=== PATIENT | male | born 1940 | race Caucasian/White ===

== ENCOUNTER 2018-10-13 14:20 | Inpatient (IN) ==
[2018-10-13 15:30] LABS: Basophils % 0.2 % (0.0-0.8); Eosinophils % 0.2 % (0.00-10.9); Hematocrit 36.9 VOL% (42.0-52.0); Hemoglobin 11.4 GM/DL (14.0-18.0); Immature Granulocytes % 0.4 %; Immature Granulocytes Absolute 0.05 #; Lymphocytes # 5.8 10*3/uL (1.4-4.0); Lymphocytes % 45.7 % (21.2-54.2); Mean Corpuscular HGB Conc 30.9 GM/DL (32-36); Mean Corpuscular Volume 85.6 FL (87-102); Mean Platelet Volume 12.7 FL (9.6-12.0); Neutrophils % 45.5 % (38.7-73.9); Platelet Count 90 T/CUMM (130-400); Red Blood Count 4.31 MC/CUMM (3.8-5.5); White Blood Count 12.8 T/CUMM (4-12)
[2018-10-13 15:56] LABS: PT Patient Result 21.1 SECS
[2018-10-13 15:59] LABS: Apearance,Urine CLEAR (Clear); Bilirubin,Urine Negative (Negative); Blood, Urine Large mg/dL (Negative); Glucose,Urine (UA) Negative (Negative); Hyaline Casts,Urine 5 /LPF (0-3); Ketones,Urine Negative (Negative); Mucus,Urine Occasional /LPF (Occasional); Nitrite,Urine Negative (Negative); Protein,Urine Negative; RBC,Urine 13 /HPF (0-4); Urine Color Straw (Yellow); Urine Urobilinogen < 2.0 EU/DL (0.2-1.0); WBC,Urine <1 /HPF (0-6)
[2018-10-13 16:08] LABS: Albumin 3.8 G/DL (3.4-5.0); Bilirubin,Total 0.6 MG/DL (0.2-1.0); Calcium 8.9 MG/DL (8.5-10.1); Osmolality,Calculated 304.7 MOS/KG (273-304)
[2018-10-13 16:46] LABS: Lymphocytes 45 % (20-55); Platelet Estimate Decreased; Segmented Neutrophils 53 % (50-85); Total Cells Counted 100
[2018-10-13] MEDS ORDERED: ONDANSETRON 4 MG/2 ML VIAL IV PRN (17:42)
[2018-10-13] MEDS: DOXAZOSIN 4 MG TABLET PO SCH (20:36)
[2018-10-13] MEDS: ROSUVASTATIN 20 MG TABLET PO SCH (20:36)
[2018-10-13] MEDS: FERROUS SULFATE 325 MG TABLET PO SCH (20:37)
[2018-10-13] MEDS: WARFARIN 3 MG TABLET PO SCH (20:37)
[2018-10-13] MEDS: SODIUM CHLORIDE 0.9% 1,000 ML IV SCH (20:41)
[2018-10-14] MEDS: SODIUM CHLORIDE 0.9% 1,000 ML IV SCH ×2 (05:43→18:30)
[2018-10-14 06:20] LABS: Basophils % 0.2 % (0.0-0.8); Eosinophils % 0.2 % (0.00-10.9); Hematocrit 33.1 VOL% (42.0-52.0); Hemoglobin 10.4 GM/DL (14.0-18.0); Immature Granulocytes % 0.2 %; Immature Granulocytes Absolute 0.02 #; Lymphocytes # 4.5 10*3/uL (1.4-4.0); Lymphocytes % 43.2 % (21.2-54.2); Mean Corpuscular HGB Conc 31.4 GM/DL (32-36); Mean Corpuscular Volume 84.4 FL (87-102); Monocytes % 8.7 % (1.7-12.7); Neutrophils % 47.5 % (38.7-73.9); Platelet Count 82 T/CUMM (130-400); Red Blood Count 3.92 MC/CUMM (3.8-5.5); Red Cell Distribution Width 16.9 % (9.3-17.3); White Blood Count 10.4 T/CUMM (4-12)
[2018-10-14 06:30] LABS: INR 2.2
[2018-10-14] MEDS: LEVOTHYROXINE 50 MCG TABLET PO SCH (06:35)
[2018-10-14 06:41] LABS: PT Patient Result 24.1 SECS
[2018-10-14 06:50] LABS: Anisocytosis 1+; Ovalocytes 1+; Platelet Estimate Decreased
[2018-10-14 06:58] LABS: Albumin 3.1 G/DL (3.4-5.0); Bilirubin,Total 0.6 MG/DL (0.2-1.0); Calcium 8.9 MG/DL (8.5-10.1); Osmolality,Calculated 302.7 MOS/KG (273-304); Thyroid Stimulating Hormone 2.33 uIU/ml (0.358-3.74); Total Protein 6.7 G/DL (6.4-8.3)
[2018-10-14] MEDS: PANTOPRAZOLE 40 MG TABLET PO SCH (08:34)
[2018-10-14] MEDS: FERROUS SULFATE 325 MG TABLET PO SCH ×2 (08:34→21:06)
[2018-10-14] MEDS: TAMSULOSIN 0.4 MG CAPSULE PO SCH (08:34)
[2018-10-14] MEDS: hydrALAZINE 20 MG/1 ML VIAL IV PRN (11:38)
[2018-10-14] MEDS: WARFARIN 3 MG TABLET PO SCH (21:05)
[2018-10-14] MEDS: DOXAZOSIN 4 MG TABLET PO SCH (21:05)
[2018-10-14] MEDS: ROSUVASTATIN 20 MG TABLET PO SCH (21:06)
[2018-10-15] MEDS: SODIUM CHLORIDE 0.9% 1,000 ML IV SCH ×2 (04:15→17:38)
[2018-10-15] MEDS: hydrALAZINE 20 MG/1 ML VIAL IV PRN ×2 (04:33→10:06)
[2018-10-15 06:08] LABS: Basophils % 0.2 % (0.0-0.8); Eosinophils % 0.3 % (0.00-10.9); Hematocrit 31.5 VOL% (42.0-52.0); Hemoglobin 9.8 GM/DL (14.0-18.0); Immature Granulocytes % 0.5 %; Immature Granulocytes Absolute 0.05 #; Lymphocytes # 4.3 10*3/uL (1.4-4.0); Lymphocytes % 39.2 % (21.2-54.2); Mean Corpuscular HGB Conc 31.1 GM/DL (32-36); Mean Corpuscular Volume 85.8 FL (87-102); Mean Platelet Volume 12.2 FL (9.6-12.0); Monocytes % 10.2 % (1.7-12.7); Neutrophils % 49.6 % (38.7-73.9); Platelet Count 69 T/CUMM (130-400); Red Blood Count 3.67 MC/CUMM (3.8-5.5); Red Cell Distribution Width 17.1 % (9.3-17.3)
[2018-10-15] MEDS: LEVOTHYROXINE 50 MCG TABLET PO SCH (06:33)
[2018-10-15 06:45] LABS: Albumin 2.9 G/DL (3.4-5.0); Bilirubin,Total 0.7 MG/DL (0.2-1.0); Calcium 8.6 MG/DL (8.5-10.1); Osmolality,Calculated 294.8 MOS/KG (273-304); Total Protein 6.2 G/DL (6.4-8.3)
[2018-10-15 06:46] LABS: Lymphocytes 31 % (20-55); Segmented Neutrophils 62 % (50-85); Total Cells Counted 100
[2018-10-15 06:47] LABS: Anisocytosis 1+; Microcytosis 2+; Ovalocytes Few
[2018-10-15 06:48] LABS: Platelet Estimate Decreased
[2018-10-15] MEDS: PANTOPRAZOLE 40 MG TABLET PO SCH (08:33)
[2018-10-15] MEDS: TAMSULOSIN 0.4 MG CAPSULE PO SCH (08:33)
[2018-10-15] MEDS: FERROUS SULFATE 325 MG TABLET PO SCH ×2 (08:33→22:20)
[2018-10-15] MEDS ORDERED: CARVEDILOL 3.125 MG TABLET PO ONE (10:06)
[2018-10-15] MEDS: DOXAZOSIN 4 MG TABLET PO SCH (22:20)
[2018-10-15] MEDS: WARFARIN 3 MG TABLET PO SCH (22:20)
[2018-10-15] MEDS: ROSUVASTATIN 20 MG TABLET PO SCH (22:21)
[2018-10-16] MEDS: SODIUM CHLORIDE 0.9% 1,000 ML IV SCH ×3 (03:18→15:29)
[2018-10-16 05:37] LABS: Basophils % 0.2 % (0.0-0.8); Eosinophils # 0.1 10*3/uL (0.0-0.87); Hematocrit 30.1 VOL% (42.0-52.0); Hemoglobin 9.2 GM/DL (14.0-18.0); Immature Granulocytes % 0.3 %; Immature Granulocytes Absolute 0.03 #; Lymphocytes # 4.7 10*3/uL (1.4-4.0); Lymphocytes % 47.9 % (21.2-54.2); Mean Corpuscular HGB Conc 30.6 GM/DL (32-36); Mean Platelet Volume 12.2 FL (9.6-12.0); Monocytes % 11.8 % (1.7-12.7); Neutrophils % 38.8 % (38.7-73.9); Platelet Count 73 T/CUMM (130-400); Red Blood Count 3.46 MC/CUMM (3.8-5.5); White Blood Count 9.9 T/CUMM (4-12)
[2018-10-16 05:55] LABS: Hypochromasia 1+; Microcytosis 1+; Ovalocytes Slight; Platelet Estimate Decreased
[2018-10-16 06:16] LABS: Albumin 2.8 G/DL (3.4-5.0); Bilirubin,Total 0.8 MG/DL (0.2-1.0); Calcium 8.4 MG/DL (8.5-10.1); Osmolality,Calculated 289.8 MOS/KG (273-304); Total Protein 6.2 G/DL (6.4-8.3)
[2018-10-16] MEDS: LEVOTHYROXINE 50 MCG TABLET PO SCH (06:37)
[2018-10-16] MEDS: TAMSULOSIN 0.4 MG CAPSULE PO SCH (09:07)
[2018-10-16] MEDS: PANTOPRAZOLE 40 MG TABLET PO SCH (09:07)
[2018-10-16] MEDS: FERROUS SULFATE 325 MG TABLET PO SCH ×2 (09:07→22:21)
[2018-10-16] MEDS: ACETAMINOPHEN 325 MG TABLET PO PRN ×2 (10:52→22:26)
[2018-10-16 14:59] LABS: INR 2.7
[2018-10-16 15:03] LABS: PT Patient Result 29.2 SECS
[2018-10-16] MEDS ORDERED: DEXTROSE 50% 25 GM/50 ML VIAL IV PRN (15:36)
[2018-10-16] MEDS ORDERED: GLUCAGON 1 MG VIAL IM PRN (15:36)
[2018-10-16 15:41] LABS: Troponin I 0.036 NG/ML (0.00-0.045)
[2018-10-16] MEDS: INSULIN LISPRO 100 UNIT/ML SUBCUT SCH ×2 (15:55→22:23)
[2018-10-16 18:18] LABS: Troponin I 0.035 NG/ML (0.00-0.045)
[2018-10-16 22:18] LABS: Troponin I 0.025 NG/ML (0.00-0.045)
[2018-10-16] MEDS: DOXAZOSIN 4 MG TABLET PO SCH (22:21)
[2018-10-16] MEDS: ROSUVASTATIN 20 MG TABLET PO SCH (22:21)
[2018-10-17 04:52] LABS: Basophils % 0.2 % (0.0-0.8); Eosinophils # 0.1 10*3/uL (0.0-0.87); Eosinophils % 1.2 % (0.00-10.9); Hematocrit 30.1 VOL% (42.0-52.0); Hemoglobin 9.2 GM/DL (14.0-18.0); Immature Granulocytes % 0.4 %; Immature Granulocytes Absolute 0.04 #; Lymphocytes # 4.8 10*3/uL (1.4-4.0); Lymphocytes % 47.2 % (21.2-54.2); Mean Corpuscular HGB Conc 30.6 GM/DL (32-36); Mean Platelet Volume 12.6 FL (9.6-12.0); Monocytes % 9.4 % (1.7-12.7); Neutrophils % 41.6 % (38.7-73.9); Platelet Count 78 T/CUMM (130-400); Red Blood Count 3.46 MC/CUMM (3.8-5.5); Red Cell Distribution Width 16.9 % (9.3-17.3); White Blood Count 10.2 T/CUMM (4-12)
[2018-10-17 05:11] LABS: Calcium 8.2 MG/DL (8.5-10.1); Osmolality,Calculated 285.8 MOS/KG (273-304)
[2018-10-17 05:18] LABS: INR 2.7
[2018-10-17 05:25] LABS: PT Patient Result 29.4 SECS
[2018-10-17 05:35] LABS: Anisocytosis 1+; Ovalocytes 1+; Platelet Estimate Decreased
[2018-10-17] MEDS ORDERED: PHYTONADIONE INJ 5 MG in SODIUM CHLORIDE 0.9% 50 ML IV ONE (06:47)
[2018-10-17] MEDS: SODIUM CHLORIDE 0.9% 1,000 ML IV SCH ×3 (06:53→22:39)
[2018-10-17] MEDS: LEVOTHYROXINE 50 MCG TABLET PO SCH (06:54)
[2018-10-17] MEDS: INSULIN LISPRO 100 UNIT/ML SUBCUT SCH ×4 (06:58→22:38)
[2018-10-17] MEDS: FERROUS SULFATE 325 MG TABLET PO SCH ×2 (10:20→22:30)
[2018-10-17] MEDS: TAMSULOSIN 0.4 MG CAPSULE PO SCH (10:20)
[2018-10-17] MEDS: PANTOPRAZOLE 40 MG TABLET PO SCH (10:20)
[2018-10-17] MEDS: CARVEDILOL 6.25 MG TABLET PO SCH ×2 (10:23→22:30)
[2018-10-17] MEDS: DOXAZOSIN 4 MG TABLET PO SCH (22:30)
[2018-10-17] MEDS: ROSUVASTATIN 20 MG TABLET PO SCH (22:30)
[2018-10-18 06:26] LABS: Basophils % 0.3 % (0.0-0.8); Eosinophils # 0.2 10*3/uL (0.0-0.87); Eosinophils % 1.8 % (0.00-10.9); Hematocrit 28.7 VOL% (42.0-52.0); Immature Granulocytes % 0.4 %; Immature Granulocytes Absolute 0.04 #; Lymphocytes # 4.5 10*3/uL (1.4-4.0); Lymphocytes % 49.8 % (21.2-54.2); Mean Corpuscular HGB Conc 31.4 GM/DL (32-36); Mean Corpuscular Volume 86.2 FL (87-102); Mean Platelet Volume 12.8 FL (9.6-12.0); Monocytes % 8.2 % (1.7-12.7); Neutrophils % 39.5 % (38.7-73.9); Platelet Count 89 T/CUMM (130-400); Red Blood Count 3.33 MC/CUMM (3.8-5.5); Red Cell Distribution Width 16.5 % (9.3-17.3)
[2018-10-18] MEDS: LEVOTHYROXINE 50 MCG TABLET PO SCH (06:50)
[2018-10-18] MEDS: INSULIN LISPRO 100 UNIT/ML SUBCUT SCH ×4 (06:50→20:47)
[2018-10-18 06:53] LABS: Calcium 8.3 MG/DL (8.5-10.1); Osmolality,Calculated 281.8 MOS/KG (273-304)
[2018-10-18 06:57] LABS: Band Neutrophils 2 % (0-10); Eosinophils 3 % (0-10); Lymphocytes 42 % (20-55); Segmented Neutrophils 42 % (50-85); Total Cells Counted 100
[2018-10-18 06:58] LABS: Anisocytosis 1+; Ovalocytes 1+; Platelet Estimate Decreased
[2018-10-18 08:10] LABS: INR 1.2; PT Patient Result 13.3 SECS
[2018-10-18] MEDS ORDERED: cefTRIAXone 1,000 MG in SYRINGE 1 EACH IV ONE (08:19)
[2018-10-18] MEDS: CARVEDILOL 6.25 MG TABLET PO SCH ×2 (10:23→21:14)
[2018-10-18] MEDS: PANTOPRAZOLE 40 MG TABLET PO SCH (10:27)
[2018-10-18] MEDS: TAMSULOSIN 0.4 MG CAPSULE PO SCH (10:27)
[2018-10-18] MEDS: FERROUS SULFATE 325 MG TABLET PO SCH ×2 (10:27→21:14)
[2018-10-18] MEDS ORDERED: LIDOCAINE 2% TOP JELLY 20 ML VIAL INTRAURETH ONE (11:11)
[2018-10-18] MEDS ORDERED: PROPOFOL 200 MG/20 ML VIAL IV ONE (11:59)
[2018-10-18] MEDS: amLODIPine 5 MG TABLET PO SCH (15:06)
[2018-10-18] MEDS ORDERED: WARFARIN 5 MG TABLET PO SCH (18:00)
[2018-10-18] MEDS ORDERED: FINASTERIDE 5 MG TABLET PO SCH (21:00)
[2018-10-18] MEDS: DOXAZOSIN 4 MG TABLET PO SCH (21:13)
[2018-10-18] MEDS: hydrALAZINE 25 MG TABLET PO SCH (21:13)
[2018-10-18] MEDS: ROSUVASTATIN 20 MG TABLET PO SCH (21:14)
[2018-10-18] MEDS: ACETAMINOPHEN 325 MG TABLET PO PRN (23:57)
[2018-10-19 04:54] LABS: INR 1.3; PT Patient Result 13.7 SECS
[2018-10-19 04:59] LABS: Basophils # 0.1 10*3/uL (0.0-0.2); Basophils % 0.6 % (0.0-0.8); Eosinophils # 0.2 10*3/uL (0.0-0.87); Eosinophils % 2.6 % (0.00-10.9); Hematocrit 29.2 VOL% (42.0-52.0); Immature Granulocytes % 0.3 %; Immature Granulocytes Absolute 0.03 #; Lymphocytes # 4.4 10*3/uL (1.4-4.0); Lymphocytes % 50.1 % (21.2-54.2); Mean Corpuscular HGB Conc 30.8 GM/DL (32-36); Mean Corpuscular Volume 86.6 FL (87-102); Mean Platelet Volume 12.4 FL (9.6-12.0); Monocytes % 7.6 % (1.7-12.7); Neutrophils % 38.8 % (38.7-73.9); Platelet Count 105 T/CUMM (130-400); Red Blood Count 3.37 MC/CUMM (3.8-5.5); Red Cell Distribution Width 16.4 % (9.3-17.3); White Blood Count 8.7 T/CUMM (4-12)
[2018-10-19 05:13] LABS: Calcium 8.3 MG/DL (8.5-10.1); Osmolality,Calculated 283.7 MOS/KG (273-304)
[2018-10-19] MEDS: LEVOTHYROXINE 50 MCG TABLET PO SCH (05:55)
[2018-10-19] MEDS ORDERED: WARFARIN 5 MG TABLET PO ONE (09:15)
[2018-10-19] MEDS: amLODIPine 5 MG TABLET PO SCH (09:34)
[2018-10-19] MEDS: PANTOPRAZOLE 40 MG TABLET PO SCH (09:34)
[2018-10-19] MEDS: TAMSULOSIN 0.4 MG CAPSULE PO SCH (09:34)
[2018-10-19] MEDS: FERROUS SULFATE 325 MG TABLET PO SCH (09:34)
[2018-10-19] MEDS: CARVEDILOL 6.25 MG TABLET PO SCH (09:34)
[2018-10-19] MEDS: hydrALAZINE 25 MG TABLET PO SCH (09:34)
[2018-10-19] MEDS: INSULIN LISPRO 100 UNIT/ML SUBCUT SCH (09:38)
[2018-10-19 10:33] VITALS: BP 153/87
[2018-10-19] MEDS: SODIUM CHLORIDE 0.9% 1,000 ML IV SCH (11:12)
== END 2018-10-19 11:09 | disposition home or self-care (01) | DRG 694 ==
LOC: N.ED 14:20 → SUATTDRO 17:26 → N.EDINP 17:26 → N.5E 18:45
PROVIDERS: ADMIT Internal Medicine; ATTEND Hospitalist